=== PATIENT | female | born 1980 | race Caucasian/White ===

== ENCOUNTER 2017-10-14 21:59 | Inpatient (IN) | payer MEDICAID ==
[2017-10-14 23:20] LABS: ADD MAN DIFF? NO
[2017-10-14 23:22] LABS: BASOPHILS % 0.2 % (0.0-2.0); EOSINOPHILS % 0.2 % (0.0-7.0); HEMATOCRIT 36.5 % (37.0-47.0); HEMOGLOBIN 12.2 g/dl (12.0-16.0); LYMPHOCYTES # 1.9 10^3/ul (0.8-2.9); LYMPHOCYTES % 21.1 % (15.0-51.0); MEAN CORPUSCULAR HEMOGLOBIN 29.9 pg (29.0-33.0); MEAN CORPUSCULAR HGB CONC 33.4 g/dl (32.0-37.0); MEAN CORPUSCULAR VOLUME 89.5 fl (82.0-101.0); MEAN PLATELET VOLUME 11.2 fl (7.4-10.4); MONOCYTE # 0.8 10^3/ul (0.3-0.9); MONOCYTES % 8.9 % (0.0-11.0); NEUTROPHIL # 6.1 10^3/ul (1.6-7.5); NEUTROPHILS % 68.7 % (39.0-77.0); PLATELET COUNT 197 10^3/UL (140-415); RED BLOOD COUNT 4.08 10^6/ul (4.20-5.40); RED CELL DISTRIBUTION WIDTH 14.5 % (11.5-14.5)
[2017-10-14 23:22] LABS: WHITE BLOOD COUNT 8.9 10^3/ul (4.8-10.8)
[2017-10-14 23:47] LABS: ALANINE AMINOTRANSFERASE 14 IU/L (13-69); ALBUMIN 3.3 g/dl (3.3-4.9); ALBUMIN/GLOBULIN RATIO 1.17; ALKALINE PHOSPHATASE 201 IU/L (42-121); ANION GAP 10 (8-16); ASPARTATE AMINO TRANSFERASE 28 IU/L (15-46); BILIRUBIN,INDIRECT 0.1 mg/dl (0-1.1); BILIRUBIN,TOTAL 0.1 mg/dl (0.2-1.3); BLOOD UREA NITROGEN 10 mg/dl (7-20); CALCIUM 9.1 mg/dl (8.4-10.2); CARBON DIOXIDE 21 mmol/L (21-31); CHLORIDE 106 mmol/L (97-110); CREATININE 0.62 mg/dl (0.44-1.00); GLUCOSE 83 mg/dl (70-220); INR 0.86; POTASSIUM 4.1 mmol/L (3.5-5.1); PROTIME 11.8 Sec (11.9-14.9); PT RATIO 0.9; SODIUM 133 mmol/L (135-144); TOTAL PROTEIN 6.1 g/dl (6.1-8.1); URIC ACID 4.6 mg/dl (3.1-7.9)
[2017-10-15 00:21] LABS: ADD UMIC NO; FIBRIN SPLIT PRODUCT <10 ug/ml (<10); UR ASCORBIC ACID NEGATIVE (NEGATIVE); UR BILIRUBIN (Dip) NEGATIVE (NEGATIVE); UR BLOOD (Dip) NEGATIVE (NEGATIVE); UR CLARITY CLEAR (CLEAR); UR COLOR YELLOW (YELLOW); UR GLUCOSE (Dip) NEGATIVE (NEGATIVE); UR KETONES (Dip) NEGATIVE (NEGATIVE); UR LEUKOCYTE ESTERASE (Dip) NEGATIVE Leu/ul (NEGATIVE); UR NITRITE (Dip) NEGATIVE (NEGATIVE); UR TOTAL PROTEIN (Dip) NEGATIVE (NEGATIVE); UR UROBILINOGEN (Dip) NEGATIVE (NEGATIVE)
[2017-10-15] MEDS: ACETAMINOPHEN 325 MG TAB PO (05:58)
[2017-10-15] MEDS ORDERED: CARBOPROST 250 MCG INJ IM ×2 (06:30→15:30)
[2017-10-15] MEDS ORDERED: METHYLERGONOVINE 0.2 MG INJ IM ×2 (06:30→15:30)
[2017-10-15] MEDS ORDERED: MISOPROSTOL 200 MCG TAB PR ×2 (06:30→15:30)
[2017-10-15] MEDS ORDERED: AMPICILLIN 2 GM/NS (PMX) 100 ML IV (06:30)
[2017-10-15] MEDS ORDERED: OXYTOCIN 30 UNITS/LR 500 ML IV ×4 (06:30→15:30)
[2017-10-15] MEDS: LACTATED RINGER'S 1,000 ML IV (07:30)
[2017-10-15] MEDS ORDERED: CEFAZOLIN 2 GM/50 ML (PMX) 50 ML IV (07:30)
[2017-10-15] MEDS: ASPIRIN 81 MG TAB PO (09:00)
[2017-10-15] MEDS: PRENATAL VITAMIN PO (09:00)
[2017-10-15] MEDS: FERROUS SULFATE (EC) 325 MG TAB PO (09:00)
[2017-10-15] MEDS ORDERED: KETOROLAC 30 MG INJ (09:27)
[2017-10-15] MEDS ORDERED: METOCLOPRAMIDE 10 MG INJ (09:27)
[2017-10-15] MEDS ORDERED: BUPIVACAINE 0.75%/DEXT (SPINAL) 2 ML INJ (09:27)
[2017-10-15] MEDS ORDERED: ONDANSETRON 4 MG INJ (09:27)
[2017-10-15] MEDS ORDERED: morphine SULFATE/PF (10 MG/10 ML) INJ (09:27)
[2017-10-15] MEDS: OXYTOCIN 30 UNITS/LR 500 ML IV ×3 (11:16→19:14)
[2017-10-15] MEDS ORDERED: morphine 2 MG INJ IV ×3 (11:30)
[2017-10-15] MEDS ORDERED: morphine (1 MG/ML) 10ML SYRINGE IV ×3 (11:30)
[2017-10-15] MEDS ORDERED: ONDANSETRON 4 MG INJ IV ×2 (11:30)
[2017-10-15] MEDS ORDERED: DIPHENHYDRAMINE 50 MG INJ IV ×2 (11:30)
[2017-10-15] MEDS ORDERED: NALOXONE (0.4 MG/ML) INJ IV (11:30)
[2017-10-15] MEDS: MAGNESIUM SULFATE 4 GM/100 ML 100 ML IV (11:36)
[2017-10-15] MEDS: MAGNESIUM SULFATE 20 GM/500 ML 500 ML IV ×2 (12:13→22:55)
[2017-10-15 12:49] LABS: HEPATITIS B SURFACE ANTIGEN NEGATIVE (NEGATIVE)
[2017-10-15 14:59] LABS: RAPID PLASMA REAGIN NONREACTIVE (NR)
[2017-10-15] MEDS ORDERED: OXYCODONE/ACETAMINOPHEN (5/325) TAB PO (15:30)
[2017-10-15] MEDS: CEFAZOLIN 1 GM/50 ML (PMX) 50 ML IVPB (17:38)
[2017-10-15] MEDS: KETOROLAC 30 MG INJ IV (17:58)
[2017-10-15 19:29] LABS: MAGNESIUM 5.3 mg/dl (1.7-2.5)
[2017-10-15] MEDS: LABETALOL 100 MG TAB PO (21:16)
[2017-10-16 00:01] LABS: COLLECTION PERIOD 24 hrs
[2017-10-16 01:26] LABS: MAGNESIUM 5.4 mg/dl (1.7-2.5)
[2017-10-16] MEDS: OXYTOCIN 30 UNITS/LR 500 ML IV ×3 (01:57→07:14)
[2017-10-16 04:00] LABS: COLLECTION PERIOD 24 hrs; CREATININE CLEARANCE 111.9 mls/min (84.0-162.0); CREATININE,URINE RANDOM 66.58 mg/dl (20-320); SCRET 0.62 mg/dl (0.44-1.00); VOLUME 1500 ml/24hrs; VOLUME 1500 mls
[2017-10-16] MEDS: ACETAMINOPHEN 500 MG TAB PO (04:49)
[2017-10-16] MEDS ORDERED: ACETAMINOPHEN 325 MG TAB PO (05:00)
[2017-10-16] MEDS: MAGNESIUM SULFATE 20 GM/500 ML 500 ML IV (07:20)
[2017-10-16] MEDS: KETOROLAC 30 MG INJ IV (09:20)
[2017-10-16] MEDS: SENNA/DOCUSATE NA (8.6MG/50MG) TAB PO ×2 (09:20→21:24)
[2017-10-16] MEDS: LABETALOL 100 MG TAB PO ×2 (09:20→21:00)
[2017-10-16 11:39] LABS: ADD MAN DIFF? NO
[2017-10-16 11:44] LABS: BASOPHILS % 0.2 % (0.0-2.0); HEMATOCRIT 30.1 % (37.0-47.0); HEMOGLOBIN 10.2 g/dl (12.0-16.0); LYMPHOCYTES # 1.1 10^3/ul (0.8-2.9); LYMPHOCYTES % 10.6 % (15.0-51.0); MEAN CORPUSCULAR HEMOGLOBIN 30.4 pg (29.0-33.0); MEAN CORPUSCULAR HGB CONC 33.9 g/dl (32.0-37.0); MEAN CORPUSCULAR VOLUME 89.9 fl (82.0-101.0); MEAN PLATELET VOLUME 10.4 fl (7.4-10.4); MONOCYTE # 0.5 10^3/ul (0.3-0.9); MONOCYTES % 4.8 % (0.0-11.0); NEUTROPHIL # 8.5 10^3/ul (1.6-7.5); NEUTROPHILS % 83.8 % (39.0-77.0); PLATELET COUNT 170 10^3/UL (140-415); RED BLOOD COUNT 3.35 10^6/ul (4.20-5.40); RED CELL DISTRIBUTION WIDTH 14.1 % (11.5-14.5)
[2017-10-16 11:44] LABS: WHITE BLOOD COUNT 10.2 10^3/ul (4.8-10.8)
[2017-10-16] MEDS: IBUPROFEN 600 MG TAB PO ×3 (12:14→23:48)
[2017-10-17] MEDS: OXYCODONE/ACETAMINOPHEN (5/325) TAB PO (04:01)
[2017-10-17] MEDS: IBUPROFEN 600 MG TAB PO ×4 (06:00→23:53)
[2017-10-17] MEDS: LABETALOL 100 MG TAB PO ×2 (08:38→21:00)
[2017-10-17] MEDS: SENNA/DOCUSATE NA (8.6MG/50MG) TAB PO ×2 (08:39→21:26)
[2017-10-17] MEDS: LANOLIN 7 GM TUBE TOP (08:39)
[2017-10-17] MEDS: HYDROCODONE/APAP (5/325) TAB PO (08:40)
[2017-10-17] MEDS: NA PHOSPHATE/BIPHOS 133 ML ENEMA PR (10:15)
[2017-10-18] MEDS: HYDROCODONE/APAP (5/325) TAB PO ×2 (01:16→13:02)
[2017-10-18] MEDS: IBUPROFEN 600 MG TAB PO ×2 (06:02→13:02)
[2017-10-18] MEDS: SENNA/DOCUSATE NA (8.6MG/50MG) TAB PO (09:07)
[2017-10-18] MEDS: LABETALOL 100 MG TAB PO (09:07)
[2017-10-18] MEDS: DIPHTH/TET/ACEL PERTUSS (ADULT) 0.5 ML VIAL IM* (09:55)
== END 2017-10-18 14:01 | disposition home or self-care (01) | DRG 766 ==
LOC: OBT 21:59 → L-D 22:01 → PP1 10-15 01:00 → L-D 22:12 → PP1 10-15 18:12
PROC: 10D00Z1 Extraction of Products of Conception, Low, Open Approach (ICD-10-PCS; principal; 2017-10-15 09:45)
PROC: 0UB70ZZ Excision of Bilateral Fallopian Tubes, Open Approach (ICD-10-PCS; 2017-10-15 09:45)
DX: O14.14 Severe pre-eclampsia complicating childbirth (principal); O34.211 Maternal care for low transverse scar from previous cesarean delivery; Z3A.36 36 weeks gestation of pregnancy; Z37.0 Single live birth; Z30.2 Encounter for sterilization
CPT/HCPCS: 80053; 81003; 82575; 82962; 83735; 84156; 84560; 85025; 85362; 85384; 85610; 85730; 86592; 86850; 86900; 86901; 86920; 87340; 88302; 88307; 99464

== ENCOUNTER 2017-10-28 08:42 | Inpatient (IN) | payer MEDICAID ==
[2017-10-28 10:12] LABS: ADD MAN DIFF? NO
[2017-10-28] MEDS: morphine 4 MG/ML VIAL IV (10:13)
[2017-10-28] MEDS: ONDANSETRON 4 MG INJ IV (10:13)
[2017-10-28 10:14] LABS: BASOPHILS % 0.3 % (0.0-2.0); EOSINOPHILS # 0.1 10^3/ul (0.0-0.5); EOSINOPHILS % 0.9 % (0.0-7.0); HEMATOCRIT 32.5 % (37.0-47.0); HEMOGLOBIN 10.8 g/dl (12.0-16.0); LYMPHOCYTES # 1.5 10^3/ul (0.8-2.9); LYMPHOCYTES % 22.5 % (15.0-51.0); MEAN CORPUSCULAR HEMOGLOBIN 30.5 pg (29.0-33.0); MEAN CORPUSCULAR HGB CONC 33.2 g/dl (32.0-37.0); MEAN CORPUSCULAR VOLUME 91.8 fl (82.0-101.0); MEAN PLATELET VOLUME 9.1 fl (7.4-10.4); MONOCYTE # 0.4 10^3/ul (0.3-0.9); MONOCYTES % 5.3 % (0.0-11.0); NEUTROPHIL # 4.8 10^3/ul (1.6-7.5); NEUTROPHILS % 70.4 % (39.0-77.0); PLATELET COUNT 342 10^3/UL (140-415); RED BLOOD COUNT 3.54 10^6/ul (4.20-5.40); RED CELL DISTRIBUTION WIDTH 13.4 % (11.5-14.5)
[2017-10-28 10:14] LABS: WHITE BLOOD COUNT 6.8 10^3/ul (4.8-10.8)
[2017-10-28 10:27] LABS: UR BACTERIA FEW /HPF (NONE SEEN); UR RBC 2 /HPF (0-5); UR WBC 2 /HPF (0-5)
[2017-10-28 10:32] LABS: ADD UMIC YES; UR ASCORBIC ACID NEGATIVE (NEGATIVE); UR BILIRUBIN (Dip) NEGATIVE (NEGATIVE); UR BLOOD (Dip) 3+ mg/dL (NEGATIVE); UR CLARITY CLEAR (CLEAR); UR COLOR STRAW (YELLOW); UR GLUCOSE (Dip) NEGATIVE (NEGATIVE); UR KETONES (Dip) NEGATIVE (NEGATIVE); UR LEUKOCYTE ESTERASE (Dip) NEGATIVE Leu/ul (NEGATIVE); UR NITRITE (Dip) NEGATIVE (NEGATIVE); UR SPECIFIC GRAVITY (Dip) 1.008 (1.003-1.030); UR TOTAL PROTEIN (Dip) NEGATIVE (NEGATIVE); UR UROBILINOGEN (Dip) NEGATIVE (NEGATIVE)
[2017-10-28 10:33] LABS: ALANINE AMINOTRANSFERASE 21 IU/L (13-69); ALBUMIN 3.6 g/dl (3.3-4.9); ALBUMIN/GLOBULIN RATIO 1.09; ALKALINE PHOSPHATASE 121 IU/L (42-121); ANION GAP 10 (8-16); ASPARTATE AMINO TRANSFERASE 20 IU/L (15-46); BILIRUBIN,INDIRECT 0.1 mg/dl (0-1.1); BILIRUBIN,TOTAL 0.1 mg/dl (0.2-1.3); BLOOD UREA NITROGEN 10 mg/dl (7-20); CALCIUM 9.1 mg/dl (8.4-10.2); CARBON DIOXIDE 29 mmol/L (21-31); CHLORIDE 109 mmol/L (97-110); CREATININE 0.71 mg/dl (0.44-1.00); GLUCOSE 85 mg/dl (70-220); MAGNESIUM 1.8 mg/dl (1.7-2.5); POTASSIUM 4.1 mmol/L (3.5-5.1); SODIUM 144 mmol/L (135-144); TOTAL PROTEIN 6.9 g/dl (6.1-8.1); URIC ACID 5.6 mg/dl (3.1-7.9)
[2017-10-28 12:25] LABS: INR 0.96; PROTIME 12.9 Sec (11.9-14.9)
[2017-10-28 12:26] LABS: PARTIAL THROMBOPLASTIN TIME 34.2 Sec (25.0-35.0)
[2017-10-28 12:27] LABS: URIC ACID 5.6 mg/dl (3.1-7.9)
[2017-10-28 13:46] LABS: FIBRIN SPLIT PRODUCT >160 ug/ml (<10)
[2017-10-28] MEDS: LABETALOL HCL 20MG INJ IV (15:22)
[2017-10-28] MEDS ORDERED: CA GLUCONATE (GM) 10% 10ML INJ IV (18:00)
[2017-10-28] MEDS: LACTATED RINGER'S 1,000 ML IV (18:20)
[2017-10-28] MEDS: MAGNESIUM SULFATE 4 GM/100 ML 100 ML IV (18:24)
[2017-10-28 18:33] LABS: ADD MAN DIFF? NO
[2017-10-28 18:36] LABS: BASOPHILS % 0.1 % (0.0-2.0); EOSINOPHILS # 0.1 10^3/ul (0.0-0.5); HEMATOCRIT 32.8 % (37.0-47.0); HEMOGLOBIN 10.6 g/dl (12.0-16.0); LYMPHOCYTES # 1.8 10^3/ul (0.8-2.9); LYMPHOCYTES % 25.4 % (15.0-51.0); MEAN CORPUSCULAR HEMOGLOBIN 29.9 pg (29.0-33.0); MEAN CORPUSCULAR HGB CONC 32.3 g/dl (32.0-37.0); MEAN CORPUSCULAR VOLUME 92.7 fl (82.0-101.0); MEAN PLATELET VOLUME 9.2 fl (7.4-10.4); MONOCYTE # 0.4 10^3/ul (0.3-0.9); MONOCYTES % 6.4 % (0.0-11.0); NEUTROPHIL # 4.6 10^3/ul (1.6-7.5); NEUTROPHILS % 66.1 % (39.0-77.0); PLATELET COUNT 325 10^3/UL (140-415); RED BLOOD COUNT 3.54 10^6/ul (4.20-5.40); RED CELL DISTRIBUTION WIDTH 13.7 % (11.5-14.5)
[2017-10-28 18:36] LABS: WHITE BLOOD COUNT 6.9 10^3/ul (4.8-10.8)
[2017-10-28 18:42] LABS: ADD UMIC YES; UR ASCORBIC ACID NEGATIVE (NEGATIVE); UR BILIRUBIN (Dip) NEGATIVE (NEGATIVE); UR BLOOD (Dip) 3+ mg/dL (NEGATIVE); UR CLARITY CLEAR (CLEAR); UR COLOR STRAW (YELLOW); UR GLUCOSE (Dip) NEGATIVE (NEGATIVE); UR KETONES (Dip) NEGATIVE (NEGATIVE); UR LEUKOCYTE ESTERASE (Dip) TRACE Leu/ul (NEGATIVE); UR NITRITE (Dip) NEGATIVE (NEGATIVE); UR RBC 2 /HPF (0-5); UR SPECIFIC GRAVITY (Dip) 1.009 (1.003-1.030); UR TOTAL PROTEIN (Dip) NEGATIVE (NEGATIVE); UR UROBILINOGEN (Dip) NEGATIVE (NEGATIVE); UR WBC 7 /HPF (0-5)
[2017-10-28 18:54] LABS: INR 1.01; PROTIME 13.4 Sec (11.9-14.9)
[2017-10-28 18:56] LABS: PARTIAL THROMBOPLASTIN TIME 32.5 Sec (25.0-35.0)
[2017-10-28 19:04] LABS: ALANINE AMINOTRANSFERASE 17 IU/L (13-69); ALBUMIN 3.3 g/dl (3.3-4.9); ALBUMIN/GLOBULIN RATIO 1.06; ALKALINE PHOSPHATASE 106 IU/L (42-121); ANION GAP 9 (8-16); ASPARTATE AMINO TRANSFERASE 24 IU/L (15-46); BILIRUBIN,INDIRECT 0.1 mg/dl (0-1.1); BILIRUBIN,TOTAL 0.1 mg/dl (0.2-1.3); BLOOD UREA NITROGEN 10 mg/dl (7-20); CALCIUM 8.9 mg/dl (8.4-10.2); CARBON DIOXIDE 30 mmol/L (21-31); CHLORIDE 107 mmol/L (97-110); CREATININE 0.76 mg/dl (0.44-1.00); GLUCOSE 121 mg/dl (70-220); POTASSIUM 3.4 mmol/L (3.5-5.1); SODIUM 143 mmol/L (135-144); TOTAL PROTEIN 6.4 g/dl (6.1-8.1)
[2017-10-28 19:05] LABS: ALANINE AMINOTRANSFERASE 20 IU/L (13-69); ALBUMIN 3.2 g/dl (3.3-4.9); ALKALINE PHOSPHATASE 106 IU/L (42-121); ASPARTATE AMINO TRANSFERASE 19 IU/L (15-46); BILIRUBIN,INDIRECT 0.1 mg/dl (0-1.1); BILIRUBIN,TOTAL 0.1 mg/dl (0.2-1.3); URIC ACID 6.1 mg/dl (3.1-7.9)
[2017-10-28 19:06] LABS: MAGNESIUM 1.8 mg/dl (1.7-2.5)
[2017-10-28] MEDS: MAGNESIUM SULFATE 20 GM/500 ML 500 ML IV (19:07)
[2017-10-28] MEDS ORDERED: LABETALOL 100 MG TAB PO (21:00)
[2017-10-28] MEDS: LABETALOL 100 MG TAB PO (21:20)
[2017-10-29] MEDS: ACETAMINOPHEN 325 MG TAB PO ×2 (00:37→07:52)
[2017-10-29 01:18] LABS: MAGNESIUM 6.2 mg/dl (1.7-2.5)
[2017-10-29] MEDS: MAGNESIUM SULFATE 20 GM/500 ML 500 ML IV ×3 (05:05→23:54)
[2017-10-29 06:40] LABS: ADD MAN DIFF? NO
[2017-10-29 06:43] LABS: WHITE BLOOD COUNT 6.7 10^3/ul (4.8-10.8)
[2017-10-29 06:43] LABS: BASOPHILS % 0.3 % (0.0-2.0); EOSINOPHILS % 0.7 % (0.0-7.0); HEMATOCRIT 32.9 % (37.0-47.0); HEMOGLOBIN 10.5 g/dl (12.0-16.0); LYMPHOCYTES % 19.6 % (15.0-51.0); MEAN CORPUSCULAR HEMOGLOBIN 29.5 pg (29.0-33.0); MEAN CORPUSCULAR HGB CONC 31.9 g/dl (32.0-37.0); MEAN CORPUSCULAR VOLUME 92.4 fl (82.0-101.0); MEAN PLATELET VOLUME 9.3 fl (7.4-10.4); NEUTROPHIL # 4.9 10^3/ul (1.6-7.5); PLATELET COUNT 336 10^3/UL (140-415); RED BLOOD COUNT 3.56 10^6/ul (4.20-5.40); RED CELL DISTRIBUTION WIDTH 13.6 % (11.5-14.5)
[2017-10-29 06:44] LABS: EOSINOPHILS # 0.1 10^3/ul (0.0-0.5); LYMPHOCYTES # 1.3 10^3/ul (0.8-2.9); MONOCYTE # 0.4 10^3/ul (0.3-0.9)
[2017-10-29] MEDS: LACTATED RINGER'S 1,000 ML IV ×2 (07:00→20:34)
[2017-10-29 07:05] LABS: ALANINE AMINOTRANSFERASE 17 IU/L (13-69); ALBUMIN 3.2 g/dl (3.3-4.9); ALKALINE PHOSPHATASE 125 IU/L (42-121); ANION GAP 13 (8-16); ASPARTATE AMINO TRANSFERASE 23 IU/L (15-46); BILIRUBIN,INDIRECT 0.1 mg/dl (0-1.1); BILIRUBIN,TOTAL 0.1 mg/dl (0.2-1.3); BLOOD UREA NITROGEN 9 mg/dl (7-20); CALCIUM 7.1 mg/dl (8.4-10.2); CARBON DIOXIDE 27 mmol/L (21-31); CHLORIDE 105 mmol/L (97-110); CREATININE 0.73 mg/dl (0.44-1.00); GLUCOSE 96 mg/dl (70-220); SODIUM 141 mmol/L (135-144); TOTAL PROTEIN 6.4 g/dl (6.1-8.1); URIC ACID 5.9 mg/dl (3.1-7.9)
[2017-10-29 07:07] LABS: INR 0.98; PROTIME 13.1 Sec (11.9-14.9)
[2017-10-29 07:08] LABS: PARTIAL THROMBOPLASTIN TIME 31.4 Sec (25.0-35.0)
[2017-10-29 07:15] LABS: MAGNESIUM 7.3 mg/dl (1.7-2.5)
[2017-10-29] MEDS: LABETALOL 100 MG TAB PO (09:39)
[2017-10-29 20:20] LABS: COLLECTION PERIOD 24 hrs; CREATININE CLEARANCE 110.9 mls/min (84.0-162.0); SCRET 0.73 mg/dl (0.44-1.00); VOLUME 4500 ml/24hrs
[2017-10-29] MEDS: LABETALOL 200 MG TAB PO (21:00)
[2017-10-29 22:15] LABS: VOLUME 4500 mls
[2017-10-29 22:19] LABS: COLLECTION PERIOD 24 hrs
[2017-10-30] MEDS: NIFEdipine (XL) 30 MG TAB PO (09:08)
[2017-10-30] MEDS: LABETALOL 200 MG TAB PO ×2 (09:08→21:00)
[2017-10-30 18:38] LABS: HEMOGLOBIN A1C 5.4 % (0-5.9)
[2017-10-30] MEDS: ACETAMINOPHEN 325 MG TAB PO (19:47)
[2017-10-31] MEDS: LABETALOL 200 MG TAB PO (08:52)
[2017-10-31] MEDS: NIFEdipine (XL) 30 MG TAB PO (08:52)
== END 2017-10-31 17:16 | disposition home or self-care (01) | DRG 776 ==
LOC: FTE 08:42 → L-D 17:50 → PP1 22:01
DX: O14.95 Unspecified pre-eclampsia, complicating the puerperium (principal); O99.215 Obesity complicating the puerperium; E66.9 Obesity, unspecified; Z68.34 Body mass index [BMI] 34.0-34.9, adult
CPT/HCPCS: 36415; 70450; 71045; 80053; 80076; 81001; 82575; 83036; 83735; 84156; 84560; 85025; 85362; 85384; 85610; 85730; 96374; 96375; 99285-25